=== PATIENT | female | born 1980 | race Hispanic/Latino ===

== ENCOUNTER 2019-10-16 13:09 | Emergency (ER) | payer MEDICARE, OTHER ==
[2019-10-16] MEDS ORDERED: Ondansetron PF 4 MG/2 ML Vial ONE (13:37)
[2019-10-16] MEDS ORDERED: Sodium Chloride 0.9% 1,000 ML ONE (13:37)
[2019-10-16 13:57] LABS: #Basophils 0.1 thou/uL (0.0-0.2); #Lymphocytes 1.9 thou/uL (1.20-3.40); #Monocytes 0.8 thou/uL (0.11-0.59); %Eosinophils 0.3 % (0.0-10.0); %Lymphocytes 19.4 % (21.0-51.0); %Neutrophils 71.3 % (42.0-75.0); Hemoglobin 15.1 g/dL (12.0-16.0); Mean Corpuscular Hemoglobin 30.6 pg (27.0-31.0); Mean Corpuscular Volume 92.8 fL (78.0-98.0); Mean Platelet Volume 7.8 fL (7.4-10.4); Platelet Count 274 thou/uL (130-400); RBC Distribution Width 10.9 % (11.5-14.5); Red Blood Cell (RBC) Count 4.92 mill/uL (4.20-5.40); White Blood Cell (WBC) Count 9.8 thou/uL (4.8-10.8)
[2019-10-16 14:15] LABS: BHCG - Serum Negative (NEGATIVE); Pregs Control Bar Appear? YES (CONTROL BAR)
[2019-10-16 14:22] LABS: ALT (SGPT) 56 U/L (8-55); AST (SGOT) 27 U/L (5-34); Albumin 4.1 g/dL (3.5-5.0); Alkaline Phosphatase 113 U/L (40-110); Anion Gap 19 mmol/L (10-20); BUN (Urea Nitrogen) 20 mg/dL (7.0-18.7); Bilirubin, Total 0.5 mg/dL (0.2-1.2); Calc. Creatinine Clearance 0 mL/min (70-130); Calcium 10.2 mg/dL (7.8-10.44); Carbon Dioxide 27 mmol/L (22-29); Chloride 99 mmol/L (98-107); Estimated GFR-MDRD 79; Globulin 4.7 g/dL (2.4-3.5); Glucose 156 mg/dL (70-105); Lipase 91 U/L (8-78); Potassium 3.7 mmol/L (3.5-5.1); Protein, Total 8.8 g/dL (6.0-8.3); Sodium 141 mmol/L (136-145)
[2019-10-16 15:31] LABS: Bilirubin Small (Negative); Blood, Urine Small (Negative); Clarity Clear (Clear); Glucose, Urine (Dipstick) Negative (Negative); Leukocyte Trace (Negative); Nitrite Negative (Negative); Protein, Urine (Dipstick) 30 mg/dL (Neg-Trace)
[2019-10-16 15:51] LABS: Bacteria/HPF Rare-Few HPF (None Seen); RBC/HPF 0-3 HPF (0-3)
--- NOTE | 2019-10-16 16:01 | CT ---
CT OF THE CHEST, ABDOMEN AND PELVIS WITHOUT IV CONTRAST: 10/16/19 INDICATION: History of coughing after vomiting, pain started after eating [place] food with history of fever. COMPARISON: None. FINDINGS: There is air space consolidation within the medial right middle lobe. There is patchy air space opaci ty and focal regions of mild consolidation within the posteromedial lower lobes bilaterally. No pleur al effusion is evident. No pneumothorax is demonstrated. No enlarged lymph nodes are grossly evident within the mediastinum. There is a gallstone within the gallbladder neck. There is gallbladder wall thickening. Small hypoden sities seen adjacent to the gallbladder fossa measuring 9 mm that cannot be further characterized but this may reflect an area of focal fatty infiltration. Adrenal glands, unopacified kidneys, pancreas and spleen appear within normal limits. There are two s eparate duodenal diverticulum seen involving the third stage of the duodenum. Small bowel is of pamela l caliber. The appendix is normal appearing. Unopacified colon is unremarkable appearing. The bladder appears within normal limits. The adnexa are slightly prominent. There is scattered degenerative and osteoarthritic change. No definite acute osseous abnormality is e vident. IMPRESSION: 1. Right middle lobe and bilateral lower lobe air space disease suspicious for aspiration pneumo nitis given the patient's history. 2. Findings suspicious for acute calculus cholecystitis. Recommend right upper quadrant ultrasou nd for further evaluation. 3. Prominence of the adnexa bilaterally. This may reflect prominent follicular cystS. Pelvic ult rasound may be helpful for further characterization. POS: [facility]
== END 2019-10-16 17:05 | disposition short-term general hospital (02) ==
LOC: NAV ERS 13:09
DX: K85.90 Acute pancreatitis without necrosis or infection, unspecified (principal); J18.9 Pneumonia, unspecified organism; J04.0 Acute laryngitis
CPT/HCPCS: 36415; 71250; 74177; 80053; 81003; 81015; 83605; 83690; 84145; 84703; 85025; 87040; 87081; 87430; 87635; 87804; 93005; 94760; 96361; 96374; J2405; J7050; U0002

== ENCOUNTER 2019-11-13 12:34 | Emergency (ER) | payer OTHER ==
[2019-11-13] MEDS ORDERED: Acetaminophen 500 MG TAB ONE (13:04)
[2019-11-13] MEDS ORDERED: Sodium Chloride 0.9% 1,000 ML ONE (13:04)
[2019-11-13] MEDS ORDERED: Ondansetron PF 4 MG/2 ML Vial ONE (13:04)
[2019-11-13 13:33] LABS: #Basophils 0.1 thou/uL (0.0-0.2); #Eosinphils 0.1 thou/uL (0.0-0.7); #Lymphocytes 1.9 thou/uL (1.20-3.40); #Monocytes 0.9 thou/uL (0.11-0.59); #Neutrophils 12.5 thou/uL (1.40-6.50); %Basophils 0.4 % (0.0-1.0); %Eosinophils 0.4 % (0.0-10.0); %Lymphocytes 12.3 % (21.0-51.0); %Monocytes 5.8 % (0.0-10.0); %Neutrophils 81.2 % (42.0-75.0); Hemoglobin 11.5 g/dL (12.0-16.0); Mean Corpuscular HGB CONC 32.6 g/dL (32.0-36.0); Mean Corpuscular Hemoglobin 29.7 pg (27.0-31.0); Mean Corpuscular Volume 91.2 fL (78.0-98.0); Mean Platelet Volume 6.1 fL (7.4-10.4); Platelet Count 437 thou/uL (130-400); Red Blood Cell (RBC) Count 3.86 mill/uL (4.20-5.40); White Blood Cell (WBC) Count 15.4 thou/uL (4.8-10.8)
[2019-11-13 13:38] LABS: ALT (SGPT) 24 U/L (8-55); AST (SGOT) 16 U/L (5-34); Albumin 3.7 g/dL (3.5-5.0); Alkaline Phosphatase 129 U/L (40-110); Anion Gap 16 mmol/L (10-20); BUN (Urea Nitrogen) 6 mg/dL (7.0-18.7); Calc. Creatinine Clearance 0 mL/min (70-130); Calcium 9.5 mg/dL (7.8-10.44); Carbon Dioxide 24 mmol/L (22-29); Chloride 99 mmol/L (98-107); Estimated GFR-MDRD 84; Globulin 4.4 g/dL (2.4-3.5); Glucose 126 mg/dL (70-105); Potassium 3.5 mmol/L (3.5-5.1); Protein, Total 8.1 g/dL (6.0-8.3); Sodium 135 mmol/L (136-145)
[2019-11-13] MEDS ORDERED: Azithromycin 250 MG TAB ONE (13:56)
[2019-11-13] MEDS ORDERED: cefTRIAXone\\ROCEPHIN 2 GM VIAL ONE (13:56)
--- NOTE | 2019-11-13 14:21 | CT ---
CT CHEST WITHOUT CONTRAST: 11/13/19 HISTORY: Cough, fever. Patient has a negative COVID-19 test on 10/16/2019. Patient had cholecystectomy since the m. COMPARISON: 10/16/19. Absence of IV contrast reduces the sensitivity of the exam particularly for evaluation of mediastinal , hilar, vascular structures and the solid organs in the upper abdomen. There is a new small right pl eural effusion with adjacent infiltrates/atelectatic changes. The air space consolidation in the med ial right middle lobe shows significant interval improvement with mild residual changes. No pneumotho races or left sided pleural effusion are seen. No pericardial effusion is identified. There is mild a telectatic change in the left lower lung. Upper abdominal tomograms demonstrate changes of cholecystectomy. There is fluid in the gallbladder f loren and adjacent to the inferior aspect of the right lobe of the liver/subcapsular collection. There are degenerative changes in the spine. IMPRESSION: 1. Small right pleural effusion with adjacent mild infiltrate/atelectatic change. 2. Interval improvement in the right middle lobe infiltrate since 10/16/19. 3. Status post cholecystectomy with fluid in the right upper quadrant. Differential diagnosis in cludes hematoma, seroma, biloma, abscess. Clinical correlation is recommended. CT scan with IV contra st and/or HIDA scan would be helpful. POS: [facility]
[2019-11-14 12:05] LABS: SARS-CoV-2 MS2 Positive; SARS-CoV-2 N Gene Negative; SARS-CoV-2 S Gene Negative; SARS-CoV-2 orf1ab Negative
== END 2019-11-13 14:50 | disposition home or self-care (01) ==
LOC: NAV ERS 12:34
DX: J18.9 Pneumonia, unspecified organism (principal); R05 Cough; R50.9 Fever, unspecified; Z20.828 Contact with and (suspected) exposure to other viral communicable diseases
CPT/HCPCS: 71250; 80053; 83605; 85025; 87635; 87804; 96365; 96375; J0696; J2405; J7050; U0003

== ENCOUNTER 2023-07-07 08:53 | Outpatient (CLI) | payer BC | END 2023-07-07 08:54 | disposition home or self-care (01) | LOC: NAV CT 08:53 | PROVIDERS: ATTEND Nurse Practitioner Family | DX: G44.019 Episodic cluster headache, not intractable (principal) | CPT/HCPCS: 70450 ==

== ENCOUNTER 2023-08-02 14:32 | Outpatient (CLI) | payer BC | END 2023-08-02 14:33 | disposition home or self-care (01) | LOC: NAV RAD 14:32 | PROVIDERS: ATTEND Nurse Practitioner Family | DX: J06.9 Acute upper respiratory infection, unspecified (principal) | CPT/HCPCS: 71046 ==

== ENCOUNTER 2025-02-06 19:01 | Emergency (ER) | payer BC ==
[~2025-02-06 19:01] MED LIST: Iopamidol 370 76% 100 ML VIAL ONE
[2025-02-06] MEDS ORDERED: Pantoprazole 40 MG VIAL ONE (19:29)
[2025-02-06 19:51] LABS: #Basophils 0.1 thou/uL (0.0-0.2); #Eosinophils 0.1 thou/uL (0.0-0.7); #Lymphocytes 2.8 thou/uL (1.20-3.40); #Monocytes 0.4 thou/uL (0.11-0.59); #Neutrophils 6.8 thou/uL (1.40-6.50); %Basophils 1.0 % (0.0-1.0); %Eosinophils 0.7 % (0.0-10.0); %Lymphocytes 27.9 % (21.0-51.0); %Monocytes 3.7 % (0.0-10.0); %Neutrophils 66.6 % (42.0-75.0); Glucose, Urine (Dipstick) Negative (Negative); Hematocrit 45.3 % (36.0-47.0); Hemoglobin 15.6 g/dL (12.0-16.0); Leukocyte Negative (Negative); Mean Corpuscular Hemoglobin 30.9 pg (27.0-31.0); Mean Corpuscular Volume 89.4 fl (78.0-98.0); Platelet Count 288 10x3/uL (130-400); Protein, Urine (Dipstick) Trace mg/dL (Neg-Trace); Red Blood Cell (RBC) Count 5.07 mill/uL (4.20-5.40); Specific Gravity, Urine 1.025 (1.005-1.030); White Blood Cell (WBC) Count 10.2 10x3/uL (4.8-10.8)
[2025-02-06 19:53] LABS: Pregnancy Test - Urine (BHCG) Negative (Negative); Pregu Control Background? CLEAR/WHITE (CLR/WHITE); Pregu Control Bar Appear? YES (CONTROL BAR)
[2025-02-06 20:02] LABS: Bacteria/HPF 2+ HPF (None Seen); CAUTI Indications for Culture Pelvic or flank pain; Mucous/LPF 2+ LPF (<2+)
[2025-02-06 20:03] LABS: Urine Culture Reflex No No
[2025-02-06 20:05] LABS: Cocaine Metabolite Screen Negative (Negative); THC/Cannabinoid Screen Negative (Negative); Tricyclic Screen Negative (Negative)
[2025-02-06 20:07] LABS: ALT (SGPT) 39 U/L (Less than 34); AST (SGOT) 23 U/L (11-34); Albumin 4.2 g/dL (3.1-4.5); Alkaline Phosphatase 62 U/L (40-110); Anion Gap 14 mmol/L (10-20); BUN (Urea Nitrogen) 10 mg/dL (7.0-18.7); Bilirubin, Total 0.7 mg/dL (0.3-1.2); Calc. Creatinine Clearance 0 mL/min (70-130); Calcium 9.5 mg/dL (7.8-10.44); Carbon Dioxide 26 mmol/L (22-29); Chloride 103 mmol/L (98-107); Globulin 3.7 g/dL (2.4-3.5); Glucose 133 mg/dL (70-105); Lipase 32 U/L (8-78); Potassium 3.8 mmol/L (3.5-5.1); Sodium 139 mmol/L (136-145)
[2025-02-06] MEDS ORDERED: Ketorolac Tromethamine 30 MG (1 mL) VIAL ONE (20:09)
== END 2025-02-06 21:49 | disposition home or self-care (01) ==
LOC: NAV ERS 19:01
DX: K29.70 Gastritis, unspecified, without bleeding (principal)
CPT/HCPCS: 74177; 80053; 80306; 81001; 81025; 83690; 85025; 87086; 96365; 96375; J1885; J2470; J2550; J7030; Q9967

== ENCOUNTER 2025-05-25 23:39 | Emergency (ER) | payer BC ==
[2025-05-26] MEDS ORDERED: Bacitracin 1 PK ONE (00:22)
== END 2025-05-26 00:40 | disposition home or self-care (01) ==
LOC: NAV ERS 23:39
DX: I83.892 Varicose veins of left lower extremity with other complications (principal)
CPT/HCPCS: 99283

== ENCOUNTER 2025-05-28 23:57 | Emergency (ER) | payer BC ==
[2025-05-29] MEDS ORDERED: Lidocaine 1% w/Epinephrine 1:100K 20 ML VIAL ONE (00:14)
[2025-05-29] MEDS ORDERED: Bacitracin 1 PK ONE (00:14)
== END 2025-05-29 01:00 | disposition home or self-care (01) ==
LOC: NAV ERS 23:57
DX: I83.892 Varicose veins of left lower extremity with other complications (principal)
CPT/HCPCS: 12004; 99283